=== PATIENT | male | born 1985 | race African-American/Black ===

== ENCOUNTER 2016-07-02 17:47 | Emergency (ER) | payer OTHER ==
[~2016-07-02 17:47] MED LIST: NORCOTAB PO
[2016-07-02] MEDS ORDERED: LIDOCAINE 1% MDV 20ML VIAL As Ordered ONE (18:31)
[2016-07-02] MEDS ORDERED: CEPHALEXIN 250 MG CAP As Ordered ONE (19:04)
[2016-07-02] MEDS ORDERED: NORCO 5/325MG TABLET (BULK) As Ordered ONE (19:05)
--- NOTE | 2016-07-02 19:29 | EDDOCDS ---
Nurse's Notes [facility] Name: Zi Fernandes Age: 30 yrs Sex: Male : 1985 Arrival Date: 07/02/2016 Time: 17:47 Bed PD Private MD: Other - Complete Info On Cds Diagnosis: Laceration without foreign body of right lesser toe(s) without damage to nail-right fifth toe, plantar surface at the MTP joint;Displaced fracture of proximal phalanx of right lesser toe(s)-fourth toe Presentation: 07/02 17:51 Presenting complaint: Patient states: running in house and hit right hit the wall and srm has lac 2-3 toes and 4th is limp. lac to under side of pinky toe. Adult Sepsis Screening: The patient does not have new or worsening altered mentation. Patient's respiratory rate is less than 22. Systolic blood pressure is greater than 100. Patient has a qSOFA score of 0- Negative Sepsis Screen. Suicide/Homicide risk assessment- the patient denies having any suicidal and/or homicidal ideations and does not present with any other emotional, behavioral or mental health complaints. Status: The patient is an active duty financial service rep. Transition of care: patient was not received from another setting of care. 17:51 Acuity: SUGEY Level 4 [facility] 17:51 Method Of Arrival: Wheelchair [facility] Triage Assessment: 17:54 General: Appears in no apparent distress, Behavior is appropriate for age, cooperative. srm Pain: Pain currently is 9 out of 10 on a pain scale. Pt Declines HIV testing. Historical: - Allergies: PENICILLINS; - Home Meds: 1. Motrin 800 mg Oral tab (Last dose: 07/02/2016 17:15) - PMHx: none; - PSHx: Appendectomy; Vasectomy; PRK Eye Surgery; wisdom teeth; - Social history: Smoking status: Patient states was never smoker of tobacco. No barriers to communication noted, The patient speaks fluent Paraguayan, Speaks appropriately for age. - Family history: Not pertinent. - : The pt / caregiver states he / she is not on anticoagulants. Home medication list is obtained from the patient. - Exposure Risk Screening:: None identified. Screenin:33 Screening information is obtained from the patient. Fall risk: No risks identified. kr3 Assistance ADL's: requires no assistance with activities of daily living. Abuse/DV Screen: The patient / caregiver reports he/she is: not in a situation that causes fear, pain or injury. Nutritional screening: No deficits noted. Advance Directives: Currently, there is no health care proxy. home support is adequate. Assessment: 19:26 General: Appears in no apparent distress, comfortable, Behavior is cooperative. Pain: jf3 Location: right foot Pain currently is 7 out of 10 on a pain scale. Neurological: Level of Consciousness is awake, alert, Oriented to person, place, time. Cardiovascular: Capillary refill < 3 seconds Chest pain is denied. Respiratory: Airway is patent Respiratory effort is even, unlabored, Respiratory pattern is regular, symmetrical, Denies shortness of breath at rest. Vital Signs: 17:48 BP 138 / 77; Pulse 83; Resp 18 S; Temp 98.8(O); Pulse Ox 99% on R/A; Weight 88.45 kg gr2 (R); Height 5 ft. 11 in. (180.34 cm) (R); Pain 9/10; 19:11 BP 144 / 88; Pulse 72; Resp 16; Temp 98.2(O); Pulse Ox 98% on R/A; Pain 8/10; sew 17:48 Body Mass Index 27.20 (88.45 kg, 180.34 cm) gr2 Vitals: 17:48 Log In Time: July 02, 2016 at 17:48. gr2 ED Course: 17:47 Patient visited by Gunnar Blue. gr2 17:47 Patient moved to Waiting gr2 17:48 Other - Complete Info On Cds is Private Physician. gr2 17:50 Patient visited by Gunnar Blue. gr2 17:50 Patient moved to Pre RCE gr2 17:53 Triage Initiated srm 17:56 Patient moved to Triage 1 jf3 18:00 [facility] Ferre[facility]-C [facility] dt4 18:00 Dahiana Jacobs MD is Attending Physician. dt4 18:00 Patient visited by Gloria Ferreira PA-C. dt4 18:13 Patient moved to TR1 kr3 18:22 [facility] Payment Agreement was scanned into [employer] and attached to record. gjb 18:29 Patient moved to PD2 kr3 18:34 Patient visited by Sherrie Qureshi RN. kr3 18:34 The patient / caregiver is instructed regarding the plan of care and ED course. kr3 Accompanied by Family Member, Patient has correct armband on for positive identification. 19:26 No IV's were initiated during this patient's visit. No procedures done that require jf3 assistance. Administered Medications: 19:02 Drug: Lidocaine 10 ml [lidocaine 10 mg/mL (1 %) injection solution (10 mL)] {Note: Used jf3 by PA at bedside.} Route: Infiltration; 19:08 Drug: HYDROcodone-acetaminophen 4 pack- 1 packets [hydrocodone 5 mg-acetaminophen 325 jf3 mg tablet (1 tabs)] {Co-Signature: slaustin (Pura Kim LPN).} Route: PO; 19:20 Drug: Cephalexin 500 mg [cephalexin 250 mg capsule (2 caps)] Route: PO; jf3 Order Results: There are currently no results for this order. Outcome: 18:56 Discharge ordered by Provider. dt4 19:26 Discharge Assessment: Patient awake, alert and oriented x 3. No cognitive and/or jf3 functional deficits noted. Patient verbalized understanding of disposition instructions. patient administered narcotics - no. The following High Risk Discharge criteria are identified: None. Discharged to home ambulatory, with significant other. Condition: good. Discharge instructions given to patient, Instructed on discharge instructions, follow up and referral plans. medication usage, no driving heavy equipment, Demonstrated understanding of instructions, medications, Pt was receptive of discharge instructions/ teaching. No special radiology studies were completed. Property :Personal belongings accompany Pt. 19:28 Patient left the ED. jf3 Signatures: Debbie Flynn, RN Sherrie Jane,RN RN bobby3 Dahiana Loera Gainslee gr2 Gloria Ferreira, PA-C PA-C dt4 Solitario Bass RN RN jf3 Patricia Bran LPN MTDD
--- NOTE | 2016-07-02 19:29 | EDDOCDS ---
Physician Documentation [facility] Name: Zi Fernandes Age: 30 yrs Sex: Male : 1985 Arrival Date: 07/02/2016 Time: 17:47 Bed PD Private MD: Other - Complete Info On Cds Disposition: 07/02/16 18:56 Discharged to Home/Self Care. Impression: Laceration without foreign body of right lesser toe(s) without damage to nail - right fifth toe, plantar surface at the MTP joint, Displaced fracture of proximal phalanx of right lesser toe(s) - fourth toe. - Condition is Stable. - Discharge Instructions: Laceration Care, Adult, Toe Fracture. - Prescriptions for Keflex 500 mg Oral Capsule - take 1 capsule by ORAL route every 8 hours for 10 days; 30 capsule. [place] 5- 325 mg Oral Tablet - take 1 tablet by ORAL route every 6 hours As needed MDD: 4 tabs; 12 tablet. - Medication Reconciliation, Local Pharmacy Hours form. - Follow up: Emergency Department; When: As needed; Reason: Worsening of conditions. Follow up: Private Physician; When: 2 - 3 days; Reason: Wound/Symptom Recheck, Recheck today's complaints, Continuance of care. - Problem is new. - Symptoms have improved. Historical: - Allergies: PENICILLINS; - Home Meds: 1. Motrin 800 mg Oral tab (Last dose: 07/02/2016 17:15) - PMHx: none; - PSHx: Appendectomy; Vasectomy; PRK Eye Surgery; wisdom teeth; - Social history: Smoking status: Patient states was never smoker of tobacco. No barriers to communication noted, The patient speaks fluent Nepali, Speaks appropriately for age. - Family history: Not pertinent. - : The pt / caregiver states he / she is not on anticoagulants. Home medication list is obtained from the patient. - Exposure Risk Screening:: None identified. Vital Signs: 07/02 17:48 BP 138 / 77; Pulse 83; Resp 18 S; Temp 98.8(O); Pulse Ox 99% on R/A; Weight 88.45 kg / gr2 195 lbs (R); Height 5 ft. 11 in. (180.34 cm) (R); Pain 9/10; 19:11 BP 144 / 88; Pulse 72; Resp 16; Temp 98.2(O); Pulse Ox 98% on R/A; Pain 8/10; sew 17:48 Body Mass Index 27.20 (88.45 kg, 180.34 cm) gr2 MDM: 18:06 Foot, Complete Ordered. EDMS 18:22 Financial registration complete. gjb 18:22 [facility] Payment Agreement was scanned into [employer] and attached to record. gjb 18:27 Lidocaine 10 mg/mL (1 %) 10 ml Infiltration once; to bedside, without Epi please, thank dt4 you. ordered. 18:59 Cephalexin 500 mg PO once ordered. dt4 18:59 Splint Affected Extremity ordered. dt4 18:59 HYDROcodone-acetaminophen 4 pack- 5 mg-325 mg 1 packets PO Per package directions; dt4 Dispense with patient. 1 po q4h prn for pain ordered. Administered Medications: 19:02 Drug: Lidocaine 10 ml [lidocaine 10 mg/mL (1 %) injection solution (10 mL)] {Note: Used jf3 by PA at bedside.} Route: Infiltration; 19:08 Drug: HYDROcodone-acetaminophen 4 pack- 1 packets [hydrocodone 5 mg-acetaminophen 325 jf3 mg tablet (1 tabs)] {Co-Signature: slm (Pura Kim LPN).} Route: PO; 19:20 Drug: Cephalexin 500 mg [cephalexin 250 mg capsule (2 caps)] Route: PO; jf3 Signatures: Dispatcher [employer] EDDebbie Covarrubias RN RN [facility] Gloria Ferreira PA-C PA-C dt4 Solitario Bass RN RN jf3 Beck, Gabriela gjb Stephanie McIntyre LPN slm The chart was reviewed and I authenticate all verbal orders and agree with the evaluation and treatment provided.Attachments: 18:22 [facility] Payment Agreement gjb MTDD
--- NOTE | 2016-07-03 06:06 | REP ---
Right foot series: Four views. History: Right fourth and fifth toe injury. Findings: Four views of the right foot demonstrate a comminuted fracture of the proximal phalanx of the fourth toe with associated soft-tissue swelling and soft tissue air consistent with an open injury. No other fracture seen. No opaque foreign body is noted. Impression: Findings consistent with an open fracture of the fourth proximal phalanx. Signed by Antonio Taylor MD 07/03/2016 02:25 P
--- NOTE | 2016-07-04 20:28 | EDDOCDS ---
Physician Documentation [facility] Name: Zi Fernandes Age: 30 yrs Sex: Male : 1985 Arrival Date: 07/02/2016 Time: 17:47 Bed PD Private MD: Other - Complete Info On Cds Disposition: 07/02/16 18:56 Discharged to Home/Self Care. Impression: Laceration without foreign body of right lesser toe(s) without damage to nail - right fifth toe, plantar surface at the MTP joint, Displaced fracture of proximal phalanx of right lesser toe(s) - fourth toe. - Condition is Stable. - Discharge Instructions: Laceration Care, Adult, Toe Fracture. - Prescriptions for Keflex 500 mg Oral Capsule - take 1 capsule by ORAL route every 8 hours for 10 days; 30 capsule. [place] 5- 325 mg Oral Tablet - take 1 tablet by ORAL route every 6 hours As needed MDD: 4 tabs; 12 tablet. - Medication Reconciliation, Local Pharmacy Hours form. - Follow up: Emergency Department; When: As needed; Reason: Worsening of conditions. Follow up: Private Physician; When: 2 - 3 days; Reason: Wound/Symptom Recheck, Recheck today's complaints, Continuance of care. - Problem is new. - Symptoms have improved. Historical: - Allergies: PENICILLINS; - Home Meds: 1. Motrin 800 mg Oral tab (Last dose: 07/02/2016 17:15) - PMHx: none; - PSHx: Appendectomy; Vasectomy; PRK Eye Surgery; wisdom teeth; - Social history: Smoking status: Patient states was never smoker of tobacco. No barriers to communication noted, The patient speaks fluent Chinese, Speaks appropriately for age. - Family history: Not pertinent. - : The pt / caregiver states he / she is not on anticoagulants. Home medication list is obtained from the patient. - Exposure Risk Screening:: None identified. Vital Signs: 07/02 17:48 BP 138 / 77; Pulse 83; Resp 18 S; Temp 98.8(O); Pulse Ox 99% on R/A; Weight 88.45 kg / gr2 195 lbs (R); Height 5 ft. 11 in. (180.34 cm) (R); Pain 9/10; 19:11 BP 144 / 88; Pulse 72; Resp 16; Temp 98.2(O); Pulse Ox 98% on R/A; Pain 8/10; sew 17:48 Body Mass Index 27.20 (88.45 kg, 180.34 cm) gr2 MDM: 18:06 Foot, Complete Ordered. EDMS 18:22 Financial registration complete. b 18:22 [facility] Payment Agreement was scanned into [employer] and attached to record. gjb 18:27 Lidocaine 10 mg/mL (1 %) 10 ml Infiltration once; to bedside, without Epi please, thank dt4 you. ordered. 18:59 Cephalexin 500 mg PO once ordered. dt4 18:59 Splint Affected Extremity ordered. dt4 18:59 HYDROcodone-acetaminophen 4 pack- 5 mg-325 mg 1 packets PO Per package directions; dt4 Dispense with patient. 1 po q4h prn for pain ordered. 07/03 09:43 T-Sheet-- Draft Copy was scanned into [employer] and attached to record. gb Administered Medications: 07/02 19:02 Drug: Lidocaine 10 ml [lidocaine 10 mg/mL (1 %) injection solution (10 mL)] {Note: Used jf3 by PA at bedside.} Route: Infiltration; 19:08 Drug: HYDROcodone-acetaminophen 4 pack- 1 packets [hydrocodone 5 mg-acetaminophen 325 jf3 mg tablet (1 tabs)] {Co-Signature: slm (Pura Kim LPN).} Route: PO; 19:20 Drug: Cephalexin 500 mg [cephalexin 250 mg capsule (2 caps)] Route: PO; jf3 Signatures: Dispatcher [employer] EDMS Debbie Flynn RN RN [facility] Kristin Gilmore, Reg Reg Gloria Ferreira, PA-C PA-C dt4 Solitario Bass RN RN jf3 Beck, Gabriela gjb Stephanie McIntyre LPN slm The chart was reviewed and I authenticate all verbal orders and agree with the evaluation and treatment provided.Attachments: 18:22 [facility] Payment Agreement [facility] 07/03 09:43 T-Sheet-- Draft Copy gb Chart Complete MTDD
--- NOTE | 2016-07-04 20:28 | EDDOCDS ---
Nurse's Notes [facility] Name: Zi Fernandes Age: 30 yrs Sex: Male : 1985 Arrival Date: 07/02/2016 Time: 17:47 Bed PD Private MD: Other - Complete Info On Cds Diagnosis: Laceration without foreign body of right lesser toe(s) without damage to nail-right fifth toe, plantar surface at the MTP joint;Displaced fracture of proximal phalanx of right lesser toe(s)-fourth toe Presentation: 07/02 17:51 Presenting complaint: Patient states: running in house and hit right hit the wall and srm has lac 2-3 toes and 4th is limp. lac to under side of pinky toe. Adult Sepsis Screening: The patient does not have new or worsening altered mentation. Patient's respiratory rate is less than 22. Systolic blood pressure is greater than 100. Patient has a qSOFA score of 0- Negative Sepsis Screen. Suicide/Homicide risk assessment- the patient denies having any suicidal and/or homicidal ideations and does not present with any other emotional, behavioral or mental health complaints. Status: The patient is an active duty service employee. Transition of care: patient was not received from another setting of care. 17:51 Acuity: SUGEY Level 4 [facility] 17:51 Method Of Arrival: Wheelchair [facility] Triage Assessment: 17:54 General: Appears in no apparent distress, Behavior is appropriate for age, cooperative. srm Pain: Pain currently is 9 out of 10 on a pain scale. Pt Declines HIV testing. Historical: - Allergies: PENICILLINS; - Home Meds: 1. Motrin 800 mg Oral tab (Last dose: 07/02/2016 17:15) - PMHx: none; - PSHx: Appendectomy; Vasectomy; PRK Eye Surgery; wisdom teeth; - Social history: Smoking status: Patient states was never smoker of tobacco. No barriers to communication noted, The patient speaks fluent Bermudian, Speaks appropriately for age. - Family history: Not pertinent. - : The pt / caregiver states he / she is not on anticoagulants. Home medication list is obtained from the patient. - Exposure Risk Screening:: None identified. Screenin:33 Screening information is obtained from the patient. Fall risk: No risks identified. kr3 Assistance ADL's: requires no assistance with activities of daily living. Abuse/DV Screen: The patient / caregiver reports he/she is: not in a situation that causes fear, pain or injury. Nutritional screening: No deficits noted. Advance Directives: Currently, there is no health care proxy. home support is adequate. Assessment: 19:26 General: Appears in no apparent distress, comfortable, Behavior is cooperative. Pain: jf3 Location: right foot Pain currently is 7 out of 10 on a pain scale. Neurological: Level of Consciousness is awake, alert, Oriented to person, place, time. Cardiovascular: Capillary refill < 3 seconds Chest pain is denied. Respiratory: Airway is patent Respiratory effort is even, unlabored, Respiratory pattern is regular, symmetrical, Denies shortness of breath at rest. Vital Signs: 17:48 BP 138 / 77; Pulse 83; Resp 18 S; Temp 98.8(O); Pulse Ox 99% on R/A; Weight 88.45 kg gr2 (R); Height 5 ft. 11 in. (180.34 cm) (R); Pain 9/10; 19:11 BP 144 / 88; Pulse 72; Resp 16; Temp 98.2(O); Pulse Ox 98% on R/A; Pain 8/10; sew 17:48 Body Mass Index 27.20 (88.45 kg, 180.34 cm) gr2 Vitals: 17:48 Log In Time: July 02, 2016 at 17:48. gr2 ED Course: 17:47 Patient visited by Gunnar Blue. gr2 17:47 Patient moved to Waiting gr2 17:48 Other - Complete Info On Cds is Private Physician. gr2 17:50 Patient visited by Gunnar Blue. gr2 17:50 Patient moved to Pre RCE gr2 17:53 Triage Initiated srm 17:56 Patient moved to Triage 1 jf3 18:00 [facility] dt4 18:00 Dahiana Jacobs MD is Attending Physician. dt4 18:00 Patient visited by Gloria Ferreira PA-C. dt4 18:13 Patient moved to TR1 kr3 18:22 [facility] Payment Agreement was scanned into [employer] and attached to record. gjb 18:29 Patient moved to PD2 kr3 18:34 Patient visited by Sherrie Qureshi RN. kr3 18:34 The patient / caregiver is instructed regarding the plan of care and ED course. kr3 Accompanied by Family Member, Patient has correct armband on for positive identification. 19:26 No IV's were initiated during this patient's visit. No procedures done that require jf3 assistance. 07/03 06:09 Foot, Complete Returned. EDMS 09:43 T-Sheet-- Draft Copy was scanned into [employer] and attached to record. gb Administered Medications: 07/02 19:02 Drug: Lidocaine 10 ml [lidocaine 10 mg/mL (1 %) injection solution (10 mL)] {Note: Used jf3 by PA at bedside.} Route: Infiltration; 19:08 Drug: HYDROcodone-acetaminophen 4 pack- 1 packets [hydrocodone 5 mg-acetaminophen 325 jf3 mg tablet (1 tabs)] {Co-Signature: slaustin (Pura Kim LPN).} Route: PO; 19:20 Drug: Cephalexin 500 mg [cephalexin 250 mg capsule (2 caps)] Route: PO; jf3 Order Results: Radiology Order: Foot, Complete Test: Foot, Complete REASON FOR EXAMINATION: right 4-5 toe injury; Right foot series: Four views.; ; History: Right fourth and fifth toe injury.; ; Findings: Four views of the right foot demonstrate a comminuted fracture of the; proximal phalanx of the fourth toe with associated soft-tissue swelling and soft; tissue air consistent with an open injury. No other fracture seen. No opaque; foreign body is noted.; ; Impression:; ; Findings consistent with an open fracture of the fourth proximal phalanx.; ; ; Signed by; Antonio Taylor MD 07/03/2016 02:25 P; Outcome: 18:56 Discharge ordered by Provider. dt4 19:26 Discharge Assessment: Patient awake, alert and oriented x 3. No cognitive and/or jf3 functional deficits noted. Patient verbalized understanding of disposition instructions. patient administered narcotics - no. The following High Risk Discharge criteria are identified: None. Discharged to home ambulatory, with significant other. Condition: good. Discharge instructions given to patient, Instructed on discharge instructions, follow up and referral plans. medication usage, no driving heavy equipment, Demonstrated understanding of instructions, medications, Pt was receptive of discharge instructions/ teaching. No special radiology studies were completed. Property :Personal belongings accompany Pt. 19:28 Patient left the ED. jf3 Signatures: Dispatcher [employer] EDMS Debbie Flynn, RN RN Kristin Jenkins, Sherrie LuRN RN kr3 Dahiana Loera Gainslee gr2 Gloria Ferreira, ESME PAMaryan dt4 Solitario Bass RN RN jf3 Patricia Bran LPN [facility] Chart Complete MTDD
--- NOTE | 2016-07-04 20:28 | EDDOCDS ---
Physician Documentation [facility] Name: Zi Fernandes Age: 30 yrs Sex: Male : 1985 Arrival Date: 07/02/2016 Time: 17:47 Bed PD Private MD: Other - Complete Info On Cds Disposition: 07/02/16 18:56 Discharged to Home/Self Care. Impression: Laceration without foreign body of right lesser toe(s) without damage to nail - right fifth toe, plantar surface at the MTP joint, Displaced fracture of proximal phalanx of right lesser toe(s) - fourth toe. - Condition is Stable. - Discharge Instructions: Laceration Care, Adult, Toe Fracture. - Prescriptions for Keflex 500 mg Oral Capsule - take 1 capsule by ORAL route every 8 hours for 10 days; 30 capsule. [place] 5- 325 mg Oral Tablet - take 1 tablet by ORAL route every 6 hours As needed MDD: 4 tabs; 12 tablet. - Medication Reconciliation, Local Pharmacy Hours form. - Follow up: Emergency Department; When: As needed; Reason: Worsening of conditions. Follow up: Private Physician; When: 2 - 3 days; Reason: Wound/Symptom Recheck, Recheck today's complaints, Continuance of care. - Problem is new. - Symptoms have improved. Historical: - Allergies: PENICILLINS; - Home Meds: 1. Motrin 800 mg Oral tab (Last dose: 07/02/2016 17:15) - PMHx: none; - PSHx: Appendectomy; Vasectomy; PRK Eye Surgery; wisdom teeth; - Social history: Smoking status: Patient states was never smoker of tobacco. No barriers to communication noted, The patient speaks fluent Slovak, Speaks appropriately for age. - Family history: Not pertinent. - : The pt / caregiver states he / she is not on anticoagulants. Home medication list is obtained from the patient. - Exposure Risk Screening:: None identified. Vital Signs: 07/02 17:48 BP 138 / 77; Pulse 83; Resp 18 S; Temp 98.8(O); Pulse Ox 99% on R/A; Weight 88.45 kg / gr2 195 lbs (R); Height 5 ft. 11 in. (180.34 cm) (R); Pain 9/10; 19:11 BP 144 / 88; Pulse 72; Resp 16; Temp 98.2(O); Pulse Ox 98% on R/A; Pain 8/10; sew 17:48 Body Mass Index 27.20 (88.45 kg, 180.34 cm) gr2 MDM: 18:06 Foot, Complete Ordered. EDMS 18:22 Financial registration complete. b 18:22 [facility] Payment Agreement was scanned into [employer] and attached to record. gjb 18:27 Lidocaine 10 mg/mL (1 %) 10 ml Infiltration once; to bedside, without Epi please, thank dt4 you. ordered. 18:59 Cephalexin 500 mg PO once ordered. dt4 18:59 Splint Affected Extremity ordered. dt4 18:59 HYDROcodone-acetaminophen 4 pack- 5 mg-325 mg 1 packets PO Per package directions; dt4 Dispense with patient. 1 po q4h prn for pain ordered. 07/03 09:43 T-Sheet-- Draft Copy was scanned into [employer] and attached to record. gb Administered Medications: 07/02 19:02 Drug: Lidocaine 10 ml [lidocaine 10 mg/mL (1 %) injection solution (10 mL)] {Note: Used jf3 by PA at bedside.} Route: Infiltration; 19:08 Drug: HYDROcodone-acetaminophen 4 pack- 1 packets [hydrocodone 5 mg-acetaminophen 325 jf3 mg tablet (1 tabs)] {Co-Signature: slm (Pura Kim LPN).} Route: PO; 19:20 Drug: Cephalexin 500 mg [cephalexin 250 mg capsule (2 caps)] Route: PO; jf3 Signatures: Dispatcher [employer] EDMS Debbie Flynn RN RN [facility] Kristin [place], Reg Reg Gloria Ferreira, PA-C PA-C dt4 Solitario Bass RN RN jf3 Beck, Gabriela gjb Stephanie McIntyre LPN slm The chart was reviewed and I authenticate all verbal orders and agree with the evaluation and treatment provided.Attachments: 18:22 [facility] Payment Agreement [facility] 07/03 09:43 T-Sheet-- Draft Copy gb Chart Complete MTDD
== END 2016-07-02 19:28 | disposition home or self-care (01) ==
LOC: M ED 17:47
DX: S92.511B Displaced fracture of proximal phalanx of right lesser toe(s), initial encounter for open fracture (principal); S91.114A Laceration without foreign body of right lesser toe(s) without damage to nail, initial encounter; W22.09XA Striking against other stationary object, initial encounter; Y92.098 Other place in other non-institutional residence as the place of occurrence of the external cause; Y93.02 Activity, running; Y99.8 Other external cause status; Z88.0 Allergy status to penicillin